=== PATIENT | male | born 1955 | race Caucasian/White ===

== ENCOUNTER 2018-01-28 12:25 | Emergency (ER) | payer OTHER ==
[~2018-01-28] VITALS: Ht 167.6 cm; Wt 72.7 kg
[2018-01-28 12:46] VITALS: BP 136/75
== END 2018-01-28 14:30 | disposition left against medical advice (07) ==
LOC: ER 12:25
DX: R51 Headache (principal); M79.672 Pain in left foot; M79.671 Pain in right foot; Z53.21 Procedure and treatment not carried out due to patient leaving prior to being seen by health care provider

== ENCOUNTER 2018-03-14 19:37 | Emergency (ER) | payer OTHER ==
[~2018-03-14] VITALS: Ht 167.6 cm; Wt 79.0 kg
[2018-03-14] MEDS ORDERED: ALBUTEROL (0.083%) 2.5MG/3ML NEB HHN STA (19:58)
[2018-03-14] MEDS ORDERED: PREDNISONE 20MG TABLET PO STA (19:58)
[2018-03-14] MEDS ORDERED: IPRATROPIUM BROMIDE (0.02%) 0.5MG/2.5ML NEB HHN STA (19:58)
[2018-03-14 20:15] VITALS: BP 134/78
== END 2018-03-14 21:20 | disposition left against medical advice (07) ==
LOC: ER 19:37
DX: J44.1 Chronic obstructive pulmonary disease with (acute) exacerbation (principal); I10 Essential (primary) hypertension; F12.10 Cannabis abuse, uncomplicated; F17.200 Nicotine dependence, unspecified, uncomplicated; R94.31 Abnormal electrocardiogram [ECG] [EKG]; F31.9 Bipolar disorder, unspecified; Z86.718 Personal history of other venous thrombosis and embolism; Z79.01 Long term (current) use of anticoagulants; Z88.5 Allergy status to narcotic agent; Z88.6 Allergy status to analgesic agent
CPT/HCPCS: 71045; 93005; 94640; 99283; J7512; J7611

== ENCOUNTER 2018-03-15 20:23 | Emergency (ER) | payer OTHER | END 2018-03-15 20:55 | disposition left against medical advice (07) | LOC: ER 20:23 | DX: R68.89 Other general symptoms and signs (principal); Z53.21 Procedure and treatment not carried out due to patient leaving prior to being seen by health care provider ==

== ENCOUNTER 2018-03-15 23:56 | Emergency (ER) | payer OTHER ==
[~2018-03-15] VITALS: Ht 167.6 cm; Wt 78.8 kg
[2018-03-16 00:50] VITALS: BP 144/84
== END 2018-03-16 01:49 | disposition left against medical advice (07) ==
LOC: ER 23:56
DX: M79.641 Pain in right hand (principal); Z53.21 Procedure and treatment not carried out due to patient leaving prior to being seen by health care provider

== ENCOUNTER 2018-03-18 02:01 | Emergency (ER) | payer OTHER ==
[~2018-03-18] VITALS: Ht 167.6 cm; Wt 79.0 kg
[2018-03-18] MEDS ORDERED: KETOROLAC 30MG/ML VIAL IV STA (02:27)
[2018-03-18] MEDS ORDERED: ONDANSETRON HCL 4MG/2ML INJ IV STA (02:27)
[2018-03-18 02:50] LABS: BASOPHILS % 1.1 % (0.0-2.0); EOSINOPHILS % 3.8 % (0.0-5.0); HEMATOCRIT. 43.6 % (42.0-52.0); HEMOGLOBIN. 14.6 g/dL (14.0-18.0); LYMPHOCYTES % 20.9 % (20.0-50.0); MEAN CORPUSCULAR HEMOGLOBIN 28.7 pg (28.0-32.0); MEAN CORPUSCULAR VOLUME 85.5 fL (80.0-94.0); MEAN PLATELET VOLUME 8.3 fl (7.4-10.4); MONOCYTES % 6.6 % (2.0-8.0); NEUTROPHILS % 67.6 % (40.0-76.0); PLATELET 259 x1000/uL (130-400); RED CELL DISTRIBUTION WIDTH 14.9 % (11.6-14.6)
[2018-03-18 02:56] LABS: CHLORIDE 105 mEq/L (98-107)
[2018-03-18 02:58] LABS: PROTHROMBIN TIME 10.3 sec (9.1-11.1)
[2018-03-18 03:27] LABS: CLARITY URINE CLEAR (CLEAR); COLOR URINE DARK YELLOW (YELLOW); KETONES URINE 1+ (NEGATIVE); LEUKOCYTE ESTERASE URINE NEGATIVE (NEGATIVE); NITRITE URINE NEGATIVE (NEGATIVE); OCCULT BLOOD URINE NEGATIVE (NEGATIVE); PROTEIN URINE TRACE (NEGATIVE); SPECIFIC GRAVITY URINE 1.038 (1.005-1.030)
[2018-03-18 04:33] VITALS: BP 132/70
== END 2018-03-18 04:33 | disposition home or self-care (01) ==
LOC: ER 02:01
DX: R10.10 Upper abdominal pain, unspecified (principal); J44.9 Chronic obstructive pulmonary disease, unspecified; F17.200 Nicotine dependence, unspecified, uncomplicated; F12.10 Cannabis abuse, uncomplicated; Z86.73 Personal history of transient ischemic attack (TIA), and cerebral infarction without residual deficits; Z88.8 Allergy status to other drugs, medicaments and biological substances; Z88.5 Allergy status to narcotic agent
CPT/HCPCS: 36415; 74018; 80053; 81003; 83690; 85025; 85610; 93005; 96374; 96375; 99284; J1885; J2405

== ENCOUNTER 2018-03-19 23:32 | Emergency (ER) | payer OTHER | END 2018-03-20 | disposition left against medical advice (07) | LOC: ER 23:32 | DX: M79.603 Pain in arm, unspecified (principal); Z53.21 Procedure and treatment not carried out due to patient leaving prior to being seen by health care provider ==

== ENCOUNTER 2018-03-23 19:59 | Emergency (ER) | payer OTHER ==
[~2018-03-23] VITALS: Ht 162.6 cm; Wt 79.0 kg
[2018-03-23 21:19] VITALS: BP 165/94
== END 2018-03-23 23:14 | disposition left against medical advice (07) ==
LOC: ER 19:59
DX: Z53.21 Procedure and treatment not carried out due to patient leaving prior to being seen by health care provider (principal)

== ENCOUNTER 2018-03-26 20:39 | Emergency (ER) | payer OTHER ==
[~2018-03-26] VITALS: Ht 167.6 cm; Wt 82.0 kg
[2018-03-27] MEDS ORDERED: MORPHINE SULFATE 10 MG/ML CPJ IM ONE (03:45)
[2018-03-27] MEDS ORDERED: CEPHALEXIN 250MG CAPSULE PO ONE (03:45)
[2018-03-27] MEDS ORDERED: KETOROLAC 30MG/ML VIAL IM ONE (03:45)
[2018-03-27] MEDS ORDERED: SULFAMETHOXAZOLE/TRIMETHOPRIM 800/160MG TABLET PO ONE (03:45)
[2018-03-27] MEDS ORDERED: ONDANSETRON 4MG ODT PO ONE (03:45)
[2018-03-27] MEDS ORDERED: CEPHALEXIN 250MG CAPSULE PO SCH (04:00)
[2018-03-27] MEDS ORDERED: MORPHINE SULFATE 10 MG/ML CPJ IM SCH (04:00)
[2018-03-27 04:20] VITALS: BP 149/82
== END 2018-03-27 04:21 | disposition home or self-care (01) ==
LOC: ER 21:01
DX: L03.031 Cellulitis of right toe (principal); F20.9 Schizophrenia, unspecified; F32.9 Major depressive disorder, single episode, unspecified; F41.9 Anxiety disorder, unspecified; F31.9 Bipolar disorder, unspecified; I51.9 Heart disease, unspecified; Z88.6 Allergy status to analgesic agent; Z88.5 Allergy status to narcotic agent; Z88.8 Allergy status to other drugs, medicaments and biological substances; Z88.1 Allergy status to other antibiotic agents; Z98.890 Other specified postprocedural states
CPT/HCPCS: 96372; 99284; J2270; Q0162

== ENCOUNTER 2018-03-28 13:47 | Emergency (ER) | payer OTHER ==
[~2018-03-28] VITALS: Ht 167.6 cm; Wt 78.0 kg
[2018-03-28 14:02] VITALS: BP 169/84
== END 2018-03-28 16:30 | disposition left against medical advice (07) ==
LOC: ER 14:07
DX: Z53.21 Procedure and treatment not carried out due to patient leaving prior to being seen by health care provider (principal)

== ENCOUNTER 2018-03-28 23:53 | Emergency (ER) | payer OTHER ==
[~2018-03-28] VITALS: Ht 167.6 cm; Wt 78.0 kg
[2018-03-28 23:55] VITALS: BP 151/83
== END 2018-03-29 03:48 | disposition left against medical advice (07) ==
LOC: ER 23:53
DX: M79.604 Pain in right leg (principal); M79.10 Myalgia, unspecified site; Z53.21 Procedure and treatment not carried out due to patient leaving prior to being seen by health care provider

== ENCOUNTER 2018-03-30 22:56 | Emergency (ER) | payer OTHER | END 2018-03-31 | disposition left against medical advice (07) | LOC: ER 22:56 | DX: Z53.21 Procedure and treatment not carried out due to patient leaving prior to being seen by health care provider (principal) ==

== ENCOUNTER 2018-03-31 03:58 | Emergency (ER) | payer OTHER ==
[~2018-03-31] VITALS: Ht 167.6 cm; Wt 81.0 kg
[2018-03-31 04:01] VITALS: BP 167/90
== END 2018-03-31 06:45 | disposition left against medical advice (07) ==
LOC: ER 03:58
DX: Z53.21 Procedure and treatment not carried out due to patient leaving prior to being seen by health care provider (principal)

== ENCOUNTER 2018-04-03 02:58 | Emergency (ER) | payer OTHER ==
[~2018-04-03] VITALS: Ht 182.9 cm; Wt 81.0 kg
[2018-04-03 03:38] VITALS: BP 159/96
== END 2018-04-03 07:40 | disposition left against medical advice (07) ==
LOC: ER 02:58
DX: F41.9 Anxiety disorder, unspecified (principal); Z53.21 Procedure and treatment not carried out due to patient leaving prior to being seen by health care provider

== ENCOUNTER 2018-04-04 20:28 | Emergency (ER) | payer OTHER ==
[~2018-04-04] VITALS: Ht 167.6 cm; Wt 78.0 kg
[2018-04-04 20:35] VITALS: BP 131/81
== END 2018-04-04 21:17 | disposition left against medical advice (07) ==
LOC: ER 20:28
DX: Z53.21 Procedure and treatment not carried out due to patient leaving prior to being seen by health care provider (principal)

== ENCOUNTER 2018-04-12 20:11 | Emergency (ER) | payer OTHER ==
[~2018-04-12] VITALS: Ht 167.6 cm; Wt 78.0 kg
[2018-04-12 20:19] VITALS: BP 111/68
== END 2018-04-12 22:35 | disposition left against medical advice (07) ==
LOC: ER 20:11
DX: M79.672 Pain in left foot (principal); M79.671 Pain in right foot; Z53.21 Procedure and treatment not carried out due to patient leaving prior to being seen by health care provider

== ENCOUNTER → 2018-04-15 15:26 | Emergency (ER) | payer MEDICAID, OTHER | END | disposition left against medical advice (07) | LOC: ER 15:26 | DX: M79.671 Pain in right foot (principal); M79.672 Pain in left foot; Z53.21 Procedure and treatment not carried out due to patient leaving prior to being seen by health care provider ==

== ENCOUNTER 2018-04-16 19:06 | Emergency (ER) | payer MEDICAID, OTHER | END 2018-04-16 21:13 | disposition left against medical advice (07) | LOC: ER 19:06 | DX: Z53.21 Procedure and treatment not carried out due to patient leaving prior to being seen by health care provider (principal) ==

== ENCOUNTER 2018-04-17 13:54 | Emergency (ER) | payer MEDICAID, OTHER ==
[~2018-04-17] VITALS: Ht 170.2 cm; Wt 70.0 kg
[2018-04-17 13:55] VITALS: BP 130/92
== END 2018-04-17 14:20 | disposition left against medical advice (07) ==
LOC: ER 13:54
DX: M79.671 Pain in right foot (principal); Z53.21 Procedure and treatment not carried out due to patient leaving prior to being seen by health care provider

== ENCOUNTER 2018-04-18 20:54 | Emergency (ER) | payer OTHER ==
[~2018-04-18] VITALS: Ht 198.1 cm; Wt 75.0 kg
[2018-04-18 21:35] VITALS: BP 129/79
== END 2018-04-19 00:57 | disposition left against medical advice (07) ==
LOC: ER 20:54
DX: M79.672 Pain in left foot (principal); M79.671 Pain in right foot; Z53.21 Procedure and treatment not carried out due to patient leaving prior to being seen by health care provider

== ENCOUNTER 2018-05-13 23:52 | Emergency (ER) | payer OTHER ==
[~2018-05-13] VITALS: Ht 177.8 cm; Wt 155.0 kg
[2018-05-13 23:53] VITALS: BP 135/71
== END 2018-05-14 00:10 | disposition left against medical advice (07) ==
LOC: ER 23:52
DX: Z53.21 Procedure and treatment not carried out due to patient leaving prior to being seen by health care provider (principal)

== ENCOUNTER 2018-05-15 00:56 | Emergency (ER) | payer OTHER ==
[~2018-05-15] VITALS: Ht 167.6 cm; Wt 69.0 kg
[2018-05-15] MEDS ORDERED: IBUPROFEN 600MG TABLET PO ONE (03:30)
[2018-05-15 04:44] VITALS: BP 136/76
== END 2018-05-15 04:55 | disposition home or self-care (01) ==
LOC: ER 01:35
DX: M79.672 Pain in left foot (principal); M79.671 Pain in right foot; J45.909 Unspecified asthma, uncomplicated; Z86.73 Personal history of transient ischemic attack (TIA), and cerebral infarction without residual deficits; Z88.6 Allergy status to analgesic agent; Z88.8 Allergy status to other drugs, medicaments and biological substances; Z88.5 Allergy status to narcotic agent
CPT/HCPCS: 99283; Z7610

== ENCOUNTER 2018-05-18 03:10 | Emergency (ER) | payer OTHER ==
[~2018-05-18] VITALS: Ht 167.6 cm; Wt 77.0 kg
[2018-05-18 03:17] VITALS: BP 128/69
== END 2018-05-18 06:06 | disposition left against medical advice (07) ==
LOC: ER 03:10
DX: Z53.21 Procedure and treatment not carried out due to patient leaving prior to being seen by health care provider (principal)

== ENCOUNTER 2018-05-19 01:37 | Emergency (ER) | payer OTHER ==
[~2018-05-19] VITALS: Ht 177.8 cm; Wt 74.0 kg
[2018-05-19 01:39] VITALS: BP 154/80
== END 2018-05-19 04:37 | disposition left against medical advice (07) ==
LOC: ER 02:07
DX: Z53.21 Procedure and treatment not carried out due to patient leaving prior to being seen by health care provider (principal)

== ENCOUNTER 2018-05-20 03:53 | Emergency (ER) | payer OTHER | END 2018-05-20 06:13 | disposition left against medical advice (07) | LOC: ER 03:53 | DX: R10.9 Unspecified abdominal pain (principal); Z53.21 Procedure and treatment not carried out due to patient leaving prior to being seen by health care provider ==